=== PATIENT | female | born 2000 | race American Indian/Alaskan Native ===

== ENCOUNTER 2025-07-07 12:18 | Emergency (ER) | payer MEDICAID ==
[~2025-07-07] VITALS: Ht 165.1 cm; Wt 103.9 kg
[2025-07-07] MEDS ORDERED: CLONAZEPAM1 M1 PO (13:55)
[2025-07-07] MEDS ORDERED: PROPRANOLOL HCL40 MG PO (13:55)
[2025-07-07] MEDS ORDERED: SEROQUEL100 MG PO (13:56)
[2025-07-07] MEDS ORDERED: LITHOBID300 MG PO (13:56)
[2025-07-07] MEDS ORDERED: CLARITIN10 MG PO (13:57)
[2025-07-07] MEDS ORDERED: MAGNESIUM CITR100 M1 PO (13:57)
[2025-07-07 14:25] LABS: CORONAVIRUS COVID-19 AG NEGATIVE (NEGATIVE)
[2025-07-07 15:37] VITALS: BP 110/83
--- OUTSIDE RECORDS SUMMARY | 2025-07-07 15:43 | XMS ---
PreManage Notification: NEERAJ REYES [employer]er Events No recent Security Events currently on file CRITERIA MET - [facility] - 2 Visits in 30 Days CARE PROVIDERS ROSETTA SERRATO [facility]: [facility] COMMUNITY PHONE: Unknown KIMBERLI CLARKE Counselor: Mental Health Current PHONE: Unknown DWAYNE JEFFERS [facility] Current PHONE: Unknown [place] has no Care Guidelines for this patient. EИрина VISIT COUNT (12 MO.) 8 [facility] Lena (Brittni Elkins) 1 KULDIP [place] HAndrew TOTAL 9 NOTE: Visits indicate total known visits. ED/UCC VISIT TRACKING (12 MO.) 07/07/2025 12:20 [facility] [place] TYPE: Emergency COMPLAINT: - COLD SYMPTOMS [facility]: Emergency DIAGNOSES: - Superficial foreign body of unspecified finger, initial encounter - Foreign Body in Skin - forgein body in hand 02/07/2025 22:05 [facility] Brittni ROJAS ([place]) TYPE: Emergency DIAGNOSES: - Encounter for test, result negative - positive test, post tubal ligation 12/06/2024 10:13 [facility] Brittni ROJAS ([place]) TYPE: Emergency DIAGNOSES: - Hematemesis - Hematemesis - vomiting blood 12/01/2024 10:40 [facility] Brittni ROJAS ([place]) TYPE: Emergency DIAGNOSES: - Acute gastritis with bleeding - Nausea with vomiting, unspecified - blood - blood throw up - Emesis 11/22/2024 21:01 [facility] Brittni ROJAS (Brittni Elkins) TYPE: Emergency DIAGNOSES: - Anxiety disorder, unspecified - Hallucinations, unspecified - medication withdrawals - Withdrawal (Drug) 10/13/2024 08:16 [facility] Brittni ROJAS (Brittni Elkins) TYPE: Emergency DIAGNOSES: - Acute gastritis with bleeding - Cannabis use, unspecified, uncomplicated - Diarrhea, unspecified - Gastro-esophageal laceration-hemorrhage syndrome - Nausea with vomiting, unspecified - Blood In Stool - Emesis - vomitting blood, blood in stool 08/08/2024 21:00 [facility] Brittni ROJAS (Brittni Elkins) TYPE: Emergency DIAGNOSES: - Other infective otitis externa, left ear - left ear bleeding - Otalgia 08/07/2024 01:22 [facility] Brittni ROJAS ([place]) TYPE: Emergency DIAGNOSES: - Unspecified nonsuppurative otitis media, left ear - LS Ear pain - Otalgia INPATIENT VISIT TRACKING (12 MO.) No inpatient visits to display in this time frame [email or web address]
== END 2025-07-07 15:41 | disposition home or self-care (01) ==
LOC: ED 12:18
PROVIDERS: Emergency Medicine
DX: J06.9 Acute upper respiratory infection, unspecified (principal); Z79.899 Other long term (current) drug therapy; Z88.2 Allergy status to sulfonamides; Z91.018 Allergy to other foods
CPT/HCPCS: 36415; 99283